=== PATIENT | male | born 1940 | race Caucasian/White ===

== ENCOUNTER 2018-03-18 07:27 | Inpatient (IN) | payer OTHER, MEDICARE ==
[~2018-03-18] VITALS: Ht 188 cm; Wt 175.6 kg
[~2018-03-18 07:27] MED LIST: CALMOSEPTINE O120 GM TP; CELEXA20 MG PO; CENTRUM COMPLE1 EACH PO; CENTRUM SILVER1 EAC1 PO; CENTRUM SILVER1 EAC3 PO; CLONAZEPAM0.5 MG PO; CLONAZEPAM1 MG PO; CLONAZEPAM2 MG PO; COLACE100 MG PO; COMBIVENT RESPIM4 GM IH; COUMADIN3 MG PO; COUMADIN5 MG PO; COUMADIN6 MG PO; CYMBALTA30 MG PO; Coumadin Protocol PO; Coumadin,Jantoven PO; DEPAKOTE250 MG PO; DEPAKOTE500 MG PO; DULCOLAX10 MG PR; DUONEB 2.5-0.5 M3 ML IH; DuoNeb IH; FEOSOL325 MG PO; FEVERALL80 MG; FLAGYL500 MG PO; FLEET ENEMA-AD118 ML PR; FLOMAX0.4 MG PO; GABAPENTIN100 MG OP; K-DUR20 MEQ PO; KEFLEX500 MG PO; KLONOPIN0.5 M1 PO; KLONOPIN1 MG PO; KlonoPIN PO; LASIX40 MG PO; LEXAPRO10 MG PO; LIDOCAINE700 MG TD; LIDODERM 5% P1 PATCH TD; LO-DOSE ASPIRIN81 M1 PO; LOW DOSE ASPIRI81 M1 PO; MIRALAX17 GM PO; OXECTA5 MG PO; OXYCODONE HCL5 MG PO; PERCOCET 5/31 TABLET PO; PHILLIPS'400 MG/5 M PO; PROMETHAZINE HC25 M1 PO; Pepcid PO; RISPERDAL0.5 MG PO; SPIRIVA1 INHALATI IH; TYLENOL REGULA325 MG PO; Theragran PO; ULTRAM50 MG PO; Ultram PO; Vancomycin IV; WELLBUTRIN SR150 MG PO; ZANTAC150 MG PO; celeXA PO
[2018-03-18 08:03] LABS: BASOPHIL (%) 0.5 % (0-1); EOSINOPHIL COUNT 0.1 K/uL (0-0.3); HEMATOCRIT 42.4 % (38.0-50.0); HEMOGLOBIN 12.4 G/DL (12.5-16.6); IMMATURE GRANULOCYTE (%) 0.9 % (0.0-0.7); LYMPHOCYTE (%) 32.4 % (15-42); LYMPHOCYTE COUNT 1.9 K/uL (1.0-2.8); MCHC 29.2 G/DL (30.0-36.0); MCV 99.3 FL (86-99); MONOCYTE (%) 5.2 % (3-12); MONOCYTE COUNT 0.3 K/uL (0-0.8); NEUTROPHIL COUNT 3.5 K/uL (1.8-6.4); PLATELET COUNT 190 K/uL (156-360); RBC DIS.WIDTH-CV 16.7 % (11.8-14.6); RBC DIS.WIDTH-SD 61.1 % (39-53); RED BLOOD COUNT 4.27 M/uL (4.00-5.50); WHITE BLOOD COUNT 5.8 K/uL (4.1-10.2)
[2018-03-18 08:11] LABS: PTT 33.4 SEC (25-37)
[2018-03-18 08:14] LABS: CHLORIDE 98 mEq/L (99-109); POTASSIUM 4.6 mEq/L (3.7-5.4); SODIUM 145 mEq/L (136-147)
[2018-03-18 08:16] LABS: GLUCOSE 98 mg/dL (70-99)
[2018-03-18 08:20] LABS: CREATININE 0.9 mg/dL (0.6-1.3); GFR ESTIMATE (CALCULATED) > 59 mL/min/ (58.99-99999)
[2018-03-18 08:21] LABS: UREA NITROGEN (BUN) 12 mg/dL (9-23)
[2018-03-18 08:24] LABS: TROP-I INTERPRETATION NEGATIVE; TROPONIN-I 0.05 ng/mL (0.0-0.30)
[2018-03-18 08:41] LABS: BASE EXCESS 14.7 mEq/L (-3 to +3); BICARBONATE 45.3 mEq/L (22-26); CARBOXY HGB 2.1 % (0-5); METHEMOGLOBIN 1.1 % (0-1.5); PCO2 92 mm Hg (35-45); PO2 92 mm Hg (80-100)
[2018-03-18 08:42] LABS: COMMENTS - BLOOD GASES A+C+; DEVICE NC; O2 FLOW 4 L/MIN; SITE LR
[2018-03-18] MEDS ORDERED: REMERON30 M2 PO (09:54)
[2018-03-18] MEDS ORDERED: DUONEB 2.5-0.5 M3 ML AEROSOL (09:56)
[2018-03-18] MEDS ORDERED: KETOCONAZOLE60 GM TP (09:57)
[2018-03-18] MEDS ORDERED: ANORO ELLIPTA1 EACH IH (09:58)
[2018-03-18] MEDS ORDERED: KEFLEX500 MG PO (09:58)
[2018-03-18 11:51] VITALS: BP 121/71
[2018-03-18 15:06] VITALS: BP 133/63
[2018-03-18 20:00] VITALS: BP 137/69
[2018-03-19] VITALS: BP 137/63
[2018-03-19 03:38] VITALS: BP 112/68
[2018-03-19 06:16] LABS: HEMATOCRIT 40.1 % (38.0-50.0); HEMOGLOBIN 11.8 G/DL (12.5-16.6); MCH 27.9 PG (29.0-34.0); MCHC 29.4 G/DL (30.0-36.0); PLATELET COUNT 203 K/uL (156-360); RBC DIS.WIDTH-CV 16.3 % (11.8-14.6); RBC DIS.WIDTH-SD 56.7 % (39-53); RED BLOOD COUNT 4.23 M/uL (4.00-5.50); WHITE BLOOD COUNT 4.1 K/uL (4.1-10.2)
[2018-03-19 06:24] LABS: MCV 94.8 FL (86-99)
[2018-03-19 06:30] LABS: ALBUMIN 3.4 G/DL (3.2-4.8); ALKALINE PHOSPHATASE 87 IU/L (3-129); ALT (GPT) 11 IU/L (3-49); AST (GOT) 11 IU/L (2-34); CHLORIDE 95 MEQ/L (99-109); CREATININE 1.1 MG/DL (0.6-1.3); GFR ESTIMATE (CALCULATED) > 59 mL/min/ (58.99-99999); GLUCOSE 141 mg/dL (70-99); POTASSIUM 4.5 MEQ/L (3.7-5.4); SODIUM 145 MEQ/L (136-147); TOTAL BILIRUBIN 0.4 MG/DL (0.0-1.0); TOTAL PROTEIN 6.2 G/DL (6.4-8.3)
[2018-03-19 06:36] LABS: UREA NITROGEN (BUN) 28 mg/dL (9-23)
[2018-03-19 06:45] LABS: CARBON DIOXIDE (BICARBONATE) > 40.0 MEQ/L (20-31)
[2018-03-19 07:09] VITALS: BP 116/56
[2018-03-19 11:53] LABS: COMMENTS - BLOOD GASES A+C+; DEVICE NC; O2 FLOW 6 L/MIN; PCO2 78 mm Hg (35-45); PO2 101 mm Hg (80-100); SITE RR
[2018-03-19 11:54] LABS: BASE EXCESS 19.5 mEq/L (-3 to +3); BICARBONATE 48.3 mEq/L (22-26); METHEMOGLOBIN 1.3 % (0-1.5)
[2018-03-19 15:15] VITALS: BP 127/59
[2018-03-19 19:35] VITALS: BP 137/71
[2018-03-20] VITALS (7 sets, daily range): BP systolic 118–165; BP diastolic 67–95
[2018-03-20 05:30] LABS: BASOPHIL (%) 0.1 % (0-1); EOSINOPHIL (%) 0 % (0-5); HEMATOCRIT 43.3 % (38.0-50.0); HEMOGLOBIN 12.9 G/DL (12.5-16.6); IMMATURE GRANULOCYTE (%) 0.6 % (0.0-0.7); LYMPHOCYTE (%) 11.5 % (15-42); LYMPHOCYTE COUNT 0.8 K/uL (1.0-2.8); MCH 28.2 PG (29.0-34.0); MCHC 29.8 G/DL (30.0-36.0); MCV 94.5 FL (86-99); MONOCYTE (%) 4.9 % (3-12); MONOCYTE COUNT 0.3 K/uL (0-0.8); NEUTROPHIL (%) 82.9 % (45-76); NEUTROPHIL COUNT 5.6 K/uL (1.8-6.4); PLATELET COUNT 225 K/uL (156-360); RBC DIS.WIDTH-CV 16.7 % (11.8-14.6); RBC DIS.WIDTH-SD 58.1 % (39-53); RED BLOOD COUNT 4.58 M/uL (4.00-5.50); WHITE BLOOD COUNT 6.8 K/uL (4.1-10.2)
[2018-03-20 05:32] LABS: TROP-I INTERPRETATION NEGATIVE; TROPONIN-I 0.06 ng/mL (0.0-0.30)
[2018-03-20 06:27] LABS: ALBUMIN 3.7 G/DL (3.2-4.8); ALKALINE PHOSPHATASE 89 IU/L (3-129); ALT (GPT) 17 IU/L (3-49); CHLORIDE 102 MEQ/L (99-109); CREATININE 1.2 MG/DL (0.6-1.3); GFR ESTIMATE (CALCULATED) > 59 mL/min/ (58.99-99999); GLUCOSE 118 mg/dL (70-99); POTASSIUM 4.4 MEQ/L (3.7-5.4); TOTAL BILIRUBIN 0.4 MG/DL (0.0-1.0); TOTAL PROTEIN 6.5 G/DL (6.4-8.3); UREA NITROGEN (BUN) 33 mg/dL (9-23)
[2018-03-20 06:30] LABS: SODIUM 153 MEQ/L (136-147)
[2018-03-20 06:31] LABS: AST (GOT) 25 IU/L (2-34); CARBON DIOXIDE (BICARBONATE) > 40.0 MEQ/L (20-31)
[2018-03-20 07:25] LABS: SITE RR
[2018-03-20 07:26] LABS: COMMENTS - BLOOD GASES A+C+; DEVICE NC; O2 FLOW 3 L/MIN; PCO2 66 mm Hg (35-45); PO2 81 mm Hg (80-100); TOTAL RESP RATE 20 resp/min; pH 7.44 (7.35-7.45)
[2018-03-20 07:27] LABS: BASE EXCESS 17.2 mEq/L (-3 to +3); BICARBONATE 46.8 mEq/L (22-26); CARBOXY HGB 1.8 % (0-5); METHEMOGLOBIN 1.5 % (0-1.5); O2 SATURATION (CALCULATED) 97.5 % (95-99)
[2018-03-20 15:49] LABS: HEMATOCRIT 43.3 % (38.0-50.0); HEMOGLOBIN 12.9 G/DL (12.5-16.6)
[2018-03-20 16:21] LABS: CHLORIDE 95 MEQ/L (99-109); CREATININE 1.3 MG/DL (0.6-1.3); GFR ESTIMATE (CALCULATED) 57 mL/min/ (58.99-99999); GLUCOSE 123 mg/dL (70-99); POTASSIUM 4.4 MEQ/L (3.7-5.4); UREA NITROGEN (BUN) 40 mg/dL (9-23)
[2018-03-20 16:22] LABS: SODIUM 143 MEQ/L (136-147)
[2018-03-21] VITALS (8 sets, daily range): BP systolic 132–155; BP diastolic 65–83
[2018-03-21 05:45] LABS: HEMATOCRIT 41.5 % (38.0-50.0); HEMOGLOBIN 12.2 G/DL (12.5-16.6); MCH 28.1 PG (29.0-34.0); MCHC 29.4 G/DL (30.0-36.0); MCV 95.6 FL (86-99); PLATELET COUNT 212 K/uL (156-360); RBC DIS.WIDTH-CV 16.5 % (11.8-14.6); RBC DIS.WIDTH-SD 58.3 % (39-53); RED BLOOD COUNT 4.34 M/uL (4.00-5.50)
[2018-03-21 06:16] LABS: CHLORIDE 98 MEQ/L (99-109); CREATININE 1.3 MG/DL (0.6-1.3); GFR ESTIMATE (CALCULATED) 57 mL/min/ (58.99-99999); POTASSIUM 4.2 MEQ/L (3.7-5.4); SODIUM 145 MEQ/L (136-147); UREA NITROGEN (BUN) 34 mg/dL (9-23)
[2018-03-21 06:20] LABS: CARBON DIOXIDE (BICARBONATE) > 40.0 MEQ/L (20-31); GLUCOSE 88 mg/dL (70-99)
[2018-03-21 12:52] LABS: TYPE OF FLUID THORACENTESIS
[2018-03-21 13:07] LABS: APPEARANCE SL. HAZY-YELLOW; BODY FLUID RBC'S < 1000 /MM^3 (0-100); BODY FLUID WBC'S 1243 /MM^3 (0-500)
[2018-03-21 13:27] LABS: BODY FLUID GLUCOSE 113 MG/DL; BODY FLUID LDH 76 IU/L; BODY FLUID PROTEIN 3.1 G/DL
[2018-03-21 13:40] LABS: TOTAL PROTEIN 6.1 G/DL (6.4-8.3)
[2018-03-21 13:50] LABS: BODY FLUID EOSINOPHILS 2 % (0-25); MONONUCLEAR WBC'S 97 %; POLYNUCLEAR WBC'S 1 % (0-25)
[2018-03-22 03:35] VITALS: BP 119/63
[2018-03-22 06:06] LABS: CHLORIDE 96 MEQ/L (99-109); CREATININE 1.1 MG/DL (0.6-1.3); GFR ESTIMATE (CALCULATED) > 59 mL/min/ (58.99-99999); GLUCOSE 92 mg/dL (70-99); SODIUM 142 MEQ/L (136-147); UREA NITROGEN (BUN) 31 mg/dL (9-23)
[2018-03-22 06:11] LABS: CARBON DIOXIDE (BICARBONATE) > 40.0 MEQ/L (20-31)
[2018-03-22 07:19] VITALS: BP 104/62
[2018-03-22 11:03] VITALS: BP 129/62
[2018-03-22 15:25] VITALS: BP 154/65
[2018-03-22 19:45] VITALS: BP 127/57
[2018-03-22 23:50] VITALS: BP 124/60
[2018-03-23 03:54] VITALS: BP 136/73
[2018-03-23 08:54] VITALS: BP 132/90
[2018-03-23 12:39] VITALS: BP 139/69
[2018-03-23] MEDS ORDERED: MELATONIN1 MG PO (15:35)
[2018-03-23 16:43] VITALS: BP 93/58
[2018-03-23 19:46] VITALS: BP 130/82
[2018-03-24 00:54] VITALS: BP 90/56
[2018-03-24 04:19] VITALS: BP 96/51
[2018-03-24 06:49] LABS: CHLORIDE 97 MEQ/L (99-109); CREATININE 1.2 MG/DL (0.6-1.3); GFR ESTIMATE (CALCULATED) > 59 mL/min/ (58.99-99999); GLUCOSE 86 mg/dL (70-99); SODIUM 140 MEQ/L (136-147); UREA NITROGEN (BUN) 30 mg/dL (9-23)
[2018-03-24 07:35] VITALS: BP 129/59
[2018-03-24 11:39] VITALS: BP 101/55
[2018-03-24] MEDS ORDERED: POLYETHYLENE GL17 GM PO (13:36)
[2018-03-24] MEDS ORDERED: CALAN SR,COVER120 MG PO (13:36)
[2018-03-24] MEDS ORDERED: FUROSEMIDE20 MG PO (13:36)
[2018-03-24] MEDS ORDERED: BACITRACIN28.4 GM TP (13:36)
[2018-03-24] MEDS ORDERED: LISINOPRIL5 MG PO (13:36)
== END 2018-03-24 15:51 | disposition home health service (06) | DRG 190 ==
LOC: EME 07:27 → EDOF 09:24 → 5SOUTH 09:24 → ENRESERV 09:25 → 5SOUTH 11:31 → ENRESERV 11:31 → 5SOUTH 03-24 15:51
PROVIDERS: Emergency Medicine; Family Medicine; Hospitalist; Internal Medicine; Internal Medicine Pulmonary Disease; Nurse Practitioner Adult Health
PROC: 5A09357 Assistance with Respiratory Ventilation, Less than 24 Consecutive Hours, Continuous Positive Airway Pressure (ICD-10-PCS; principal; 2018-03-18)
PROC: 0W9B30Z Drainage of Left Pleural Cavity with Drainage Device, Percutaneous Approach (ICD-10-PCS; 2018-03-21)
DX: J44.1 Chronic obstructive pulmonary disease with (acute) exacerbation (principal); J96.21 Acute and chronic respiratory failure with hypoxia; J96.22 Acute and chronic respiratory failure with hypercapnia; I13.0 Hypertensive heart and chronic kidney disease with heart failure and stage 1 through stage 4 chronic kidney disease, or unspecified chronic kidney disease; I50.21 Acute systolic (congestive) heart failure; N18.3 Chronic kidney disease, stage 3 (moderate); J98.01 Acute bronchospasm; Z99.81 Dependence on supplemental oxygen; S81.811A Laceration without foreign body, right lower leg, initial encounter; W22.8XXA Striking against or struck by other objects, initial encounter; Y92.230 Patient room in hospital as the place of occurrence of the external cause; D64.9 Anemia, unspecified; E86.9 Volume depletion, unspecified; T50.1X5A Adverse effect of loop [high-ceiling] diuretics, initial encounter; E87.2 Acidosis; F19.959 Other psychoactive substance use, unspecified with psychoactive substance-induced psychotic disorder, unspecified; T38.0X5A Adverse effect of glucocorticoids and synthetic analogues, initial encounter; J90 Pleural effusion, not elsewhere classified; I47.1 Supraventricular tachycardia; I27.20 Pulmonary hypertension, unspecified; E66.01 Morbid (severe) obesity due to excess calories; Z68.42 Body mass index [BMI] 45.0-49.9, adult; G47.33 Obstructive sleep apnea (adult) (pediatric); I42.9 Cardiomyopathy, unspecified; I35.0 Nonrheumatic aortic (valve) stenosis; I73.9 Peripheral vascular disease, unspecified; I25.10 Atherosclerotic heart disease of native coronary artery without angina pectoris; K21.9 Gastro-esophageal reflux disease without esophagitis; F41.9 Anxiety disorder, unspecified; F32.9 Major depressive disorder, single episode, unspecified; Z90.5 Acquired absence of kidney; Z86.14 Personal history of Methicillin resistant Staphylococcus aureus infection; Z87.891 Personal history of nicotine dependence; Z89.612 Acquired absence of left leg above knee
CPT/HCPCS: 36600; 71045; 76942; 80048; 80048 91; 80053; 82803; 82945; 83615; 83615 91; 83880; 84155; 84157; 84484; 85014; 85018; 85025; 85027; 85610; 85730; 87070; 87075; 87116; 87205; 87206; 88108; 88305; 89051; 93005; 93306; 94010; 94640; 94640 76; 94660; 94667; 94668; 94799; 97530 GP; 99281; 99284; J0456; J1650; J1940; J2930; J7512

== ENCOUNTER 2018-04-04 18:55 | Inpatient (IN) | payer OTHER, MEDICARE ==
[~2018-04-04] VITALS: Ht 193 cm; Wt 126.7 kg
[~2018-04-04 18:55] MED LIST changes: +ANORO ELLIPTA1 EACH IH; +BACITRACIN28.4 GM TP; +CALAN SR,COVER120 MG PO; +DUONEB 2.5-0.5 M3 ML AEROSOL; +FUROSEMIDE20 MG PO; +KETOCONAZOLE60 GM TP; +LISINOPRIL5 MG PO; +MELATONIN1 MG PO; +POLYETHYLENE GL17 GM PO; +REMERON30 M2 PO
[2018-04-04 19:42] LABS: BASOPHIL (%) 0.4 % (0-1); EOSINOPHIL (%) 1.6 % (0-5); EOSINOPHIL COUNT 0.1 K/uL (0-0.3); HEMATOCRIT 40.2 % (38.0-50.0); HEMOGLOBIN 11.9 G/DL (12.5-16.6); IMMATURE GRANULOCYTE (%) 0.2 % (0.0-0.7); LYMPHOCYTE COUNT 1.1 K/uL (1.0-2.8); MCH 29.2 PG (29.0-34.0); MCHC 29.6 G/DL (30.0-36.0); MCV 98.8 FL (86-99); MONOCYTE (%) 5.4 % (3-12); MONOCYTE COUNT 0.3 K/uL (0-0.8); NEUTROPHIL (%) 70.4 % (45-76); NEUTROPHIL COUNT 3.6 K/uL (1.8-6.4); PLATELET COUNT 194 K/uL (156-360); RBC DIS.WIDTH-CV 15.2 % (11.8-14.6); RBC DIS.WIDTH-SD 54.9 % (39-53); RED BLOOD COUNT 4.07 M/uL (4.00-5.50); WHITE BLOOD COUNT 5.1 K/uL (4.1-10.2)
[2018-04-04 19:53] LABS: INTER. NORMALIZED RATIO 1.1
[2018-04-04 19:54] LABS: ALBUMIN 3.6 g/dL (3.2-4.8); CHLORIDE 98 mEq/L (99-109); POTASSIUM 5.5 mEq/L (3.7-5.4); SODIUM 147 mEq/L (136-147)
[2018-04-04 19:55] LABS: MAGNESIUM 2.4 mg/dL (1.3-2.7)
[2018-04-04 19:56] LABS: PTT 33.5 SEC (25-37)
[2018-04-04 19:56] LABS: GLUCOSE 107 mg/dL (70-99)
[2018-04-04 19:58] LABS: TOTAL BILIRUBIN 0.3 mg/dL (0.0-1.0)
[2018-04-04 20:00] LABS: ALKALINE PHOSPHATASE 94 IU/L (3-129); CREATININE 1.5 mg/dL (0.6-1.3); GFR ESTIMATE (CALCULATED) 48 mL/min/ (58.99-99999)
[2018-04-04 20:01] LABS: UREA NITROGEN (BUN) 33 mg/dL (9-23)
[2018-04-04 20:02] LABS: AST (GOT) 14 IU/L (2-34)
[2018-04-04 20:03] LABS: ALT (GPT) 14 IU/L (3-49)
[2018-04-04 20:04] LABS: TROP-I INTERPRETATION NEGATIVE; TROPONIN-I 0.05 ng/mL (0.0-0.30)
[2018-04-04] MEDS ORDERED: ZESTRIL5 MG PO (22:34)
[2018-04-04] MEDS ORDERED: TAMSULOSIN HCL0.4 MG PO (22:38)
[2018-04-04] MEDS ORDERED: VERAPAMIL HCL120 M2 PO (22:39)
[2018-04-04] MEDS ORDERED: TYLENOL EXTRA500 MG PO (22:41)
[2018-04-05] VITALS (14 sets, daily range): BP systolic 85–118; BP diastolic 46–76
[2018-04-05 00:19] LABS: COMMENTS - BLOOD GASES C+; DEVICE NCH; O2 FLOW 15 L/MIN; PCO2 99 mm Hg (35-45); SITE RR; pH 7.28 (7.35-7.45)
[2018-04-05 00:20] LABS: BASE EXCESS 15.8 mEq/L (-3 to +3); BICARBONATE 46.5 mEq/L (22-26); CARBOXY HGB 1.9 % (0-5); METHEMOGLOBIN 1.3 % (0-1.5); O2 SATURATION (CALCULATED) 98.2 % (95-99); PO2 95 mm Hg (80-100)
[2018-04-05 03:43] LABS: COMMENTS - BLOOD GASES C+; DEVICE NCH; O2 FLOW 10 L/MIN; PCO2 107 mm Hg (35-45); PO2 77 mm Hg (80-100); SITE RR; pH 7.24 (7.35-7.45)
[2018-04-05 03:44] LABS: BASE EXCESS 14.4 mEq/L (-3 to +3); BICARBONATE 45.9 mEq/L (22-26); CARBOXY HGB 1.7 % (0-5)
[2018-04-05 04:54] LABS: DEVICE BIPAP; O2 FLOW 15 L/MIN; SITE RR
[2018-04-05 04:55] LABS: BASE EXCESS 11.8 mEq/L (-3 to +3); BICARBONATE 43.4 mEq/L (22-26); CARBOXY HGB 1.6 % (0-5); CONTINUOUS POS AIRWAY PRESSURE 6 cm H2O; METHEMOGLOBIN 1.2 % (0-1.5); PCO2 106 mm Hg (35-45); PO2 50 mm Hg (80-100); PRES. SUPPORT 20 CM/H2O; pH 7.22 (7.35-7.45)
[2018-04-05 04:56] LABS: COMMENTS - BLOOD GASES C+
[2018-04-05 06:11] LABS: HEMATOCRIT 40.7 % (38.0-50.0); HEMOGLOBIN 11.6 G/DL (12.5-16.6); MCH 28.2 PG (29.0-34.0); MCHC 28.5 G/DL (30.0-36.0); PLATELET COUNT 210 K/uL (156-360); RBC DIS.WIDTH-CV 15.5 % (11.8-14.6); RBC DIS.WIDTH-SD 56.6 % (39-53); RED BLOOD COUNT 4.11 M/uL (4.00-5.50); WHITE BLOOD COUNT 9.2 K/uL (4.1-10.2)
[2018-04-05 06:39] LABS: CHLORIDE 97 MEQ/L (99-109); CREATININE 1.5 MG/DL (0.6-1.3); GFR ESTIMATE (CALCULATED) 48 mL/min/ (58.99-99999); GLUCOSE 119 mg/dL (70-99); POTASSIUM 4.9 MEQ/L (3.7-5.4); SODIUM 143 MEQ/L (136-147); UREA NITROGEN (BUN) 35 mg/dL (9-23)
[2018-04-05 06:43] LABS: CARBON DIOXIDE (BICARBONATE) > 40.0 MEQ/L (20-31)
[2018-04-05 06:55] LABS: PCO2 106 mm Hg (35-45); PO2 93 mm Hg (80-100); pH 7.21 (7.35-7.45)
[2018-04-05 06:56] LABS: BASE EXCESS 10.7 mEq/L (-3 to +3); BICARBONATE 42.4 mEq/L (22-26); CARBOXY HGB 2.7 % (0-5); METHEMOGLOBIN 0.3 % (0-1.5); O2 SATURATION (CALCULATED) 98.8 % (95-99)
[2018-04-05 06:57] LABS: COMMENTS - BLOOD GASES C+A+; DEVICE MASK VENT]; FI02 40 %; MODE SPONT; SITE RR; TOTAL RESP RATE 18 resp/min
[2018-04-05 06:58] LABS: PEEP 5 CM/H20; PRES. SUPPORT 18 CM/H2O
[2018-04-05 12:30] LABS: COMMENTS - BLOOD GASES A+C+; DEVICE VENT; FI02 60 %; SITE RR
[2018-04-05 12:31] LABS: MECHANICAL RATE 16 resp/min; MODE ACVC; PEEP 5 CM/H20; TIDAL VOLUME 500 ML; TOTAL RESP RATE 16 resp/min
[2018-04-05 12:32] LABS: BASE EXCESS 13.6 mEq/L (-3 to +3); BICARBONATE 41.2 mEq/L (22-26); O2 SATURATION (CALCULATED) 98.5 % (95-99); PCO2 68 mm Hg (35-45); PO2 100 mm Hg (80-100); pH 7.38 (7.35-7.45)
[2018-04-05 13:36] LABS: TROP-I INTERPRETATION NEGATIVE; TROPONIN-I 0.05 ng/mL (0.0-0.30)
[2018-04-05 14:14] LABS: ALBUMIN 3.2 G/DL (3.2-4.8); ALKALINE PHOSPHATASE 84 IU/L (3-129); ALT (GPT) 10 IU/L (3-49); AST (GOT) 9 IU/L (2-34); CHLORIDE 100 MEQ/L (99-109); CREATININE 1.5 MG/DL (0.6-1.3); GFR ESTIMATE (CALCULATED) 48 mL/min/ (58.99-99999); GLUCOSE 112 mg/dL (70-99); MAGNESIUM 1.7 mg/dl (1.3-2.7); SODIUM 143 MEQ/L (136-147); TOTAL BILIRUBIN 0.7 MG/DL (0.0-1.0); TOTAL PROTEIN 5.8 G/DL (6.4-8.3); UREA NITROGEN (BUN) 35 mg/dL (9-23)
[2018-04-05 14:32] LABS: APPEARANCE CLEAR ((CLEAR)); BILIRUBIN NEGATIVE; BLOOD NEGATIVE; COLOR YELLOW ((YELLOW)); GLUCOSE (STRIP) NEGATIVE; KETONES NEGATIVE; LEUKOCYTES NEGATIVE; NITRITE NEGATIVE; PROTEIN (STRIP) NEGATIVE; UCUL ADDED? NO; UROBILINOGEN 0.2 MG/DL (0.2-1.0)
[2018-04-05 16:09] LABS: HIGH-SENS C-REACTIVE PROTEIN 4.86 MG/DL (0.02-0.20)
[2018-04-05 20:27] LABS: CHLORIDE 101 MEQ/L (99-109); CREATININE 1.6 MG/DL (0.6-1.3); GFR ESTIMATE (CALCULATED) 45 mL/min/ (58.99-99999); GLUCOSE 188 mg/dL (70-99); POTASSIUM 5.3 MEQ/L (3.7-5.4); SODIUM 140 MEQ/L (136-147); UREA NITROGEN (BUN) 35 mg/dL (9-23)
[2018-04-06] VITALS (27 sets, daily range): BP systolic 15–133; BP diastolic 44–76
[2018-04-06 10:25] LABS: HEMATOCRIT 30.5 % (38.0-50.0); MCH 28.7 PG (29.0-34.0); MCHC 30.5 G/DL (30.0-36.0); RBC DIS.WIDTH-CV 15.8 % (11.8-14.6); RBC DIS.WIDTH-SD 54.7 % (39-53); WHITE BLOOD COUNT 6.3 K/uL (4.1-10.2)
[2018-04-06 10:37] LABS: HEMOGLOBIN 9.3 G/DL (12.5-16.6); MCV 94.1 FL (86-99); RED BLOOD COUNT 3.24 M/uL (4.00-5.50)
[2018-04-06 10:44] LABS: BASOPHIL (%) 0 % (0-1); EOSINOPHIL (%) 0 % (0-5); IMMATURE GRANULOCYTE (%) 0.8 % (0.0-0.7); LYMPHOCYTE COUNT 0.4 K/uL (1.0-2.8); MONOCYTE (%) 0.5 % (3-12); NEUTROPHIL (%) 92.7 % (45-76); NEUTROPHIL COUNT 5.9 K/uL (1.8-6.4); PLAT.SUFFICIENCY ADEQUATE
[2018-04-06 10:53] LABS: ALBUMIN 2.9 G/DL (3.2-4.8); ALKALINE PHOSPHATASE 58 IU/L (3-129); ALT (GPT) 9 IU/L (3-49); AST (GOT) 9 IU/L (2-34); CHLORIDE 104 MEQ/L (99-109); CREATININE 1.2 MG/DL (0.6-1.3); GFR ESTIMATE (CALCULATED) > 59 mL/min/ (58.99-99999); GLUCOSE 156 mg/dL (70-99); POTASSIUM 3.8 MEQ/L (3.7-5.4); SODIUM 141 MEQ/L (136-147); TOTAL PROTEIN 5.5 G/DL (6.4-8.3); UREA NITROGEN (BUN) 29 mg/dL (9-23)
[2018-04-06 10:54] LABS: MAGNESIUM 1.4 mg/dl (1.3-2.7); TOTAL BILIRUBIN 0.3 MG/DL (0.0-1.0)
[2018-04-06 11:11] LABS: PLATELET COUNT 135 K/uL (156-360)
[2018-04-07] VITALS (23 sets, daily range): BP systolic 81–147; BP diastolic 42–104
[2018-04-07 05:29] LABS: BASOPHIL (%) 0 % (0-1); EOSINOPHIL (%) 0 % (0-5); HEMATOCRIT 32.2 % (38.0-50.0); HEMOGLOBIN 9.9 G/DL (12.5-16.6); IMMATURE GRANULOCYTE (%) 0.5 % (0.0-0.7); LYMPHOCYTE COUNT 0.3 K/uL (1.0-2.8); MCH 28.5 PG (29.0-34.0); MCHC 30.7 G/DL (30.0-36.0); MCV 92.8 FL (86-99); MONOCYTE (%) 1.6 % (3-12); MONOCYTE COUNT 0.1 K/uL (0-0.8); NEUTROPHIL (%) 91.9 % (45-76); NEUTROPHIL COUNT 5.2 K/uL (1.8-6.4); PLATELET COUNT 149 K/uL (156-360); RBC DIS.WIDTH-CV 15.8 % (11.8-14.6); RBC DIS.WIDTH-SD 53.7 % (39-53); RED BLOOD COUNT 3.47 M/uL (4.00-5.50); WHITE BLOOD COUNT 5.7 K/uL (4.1-10.2)
[2018-04-07 05:59] LABS: ALBUMIN 2.6 G/DL (3.2-4.8); ALKALINE PHOSPHATASE 63 IU/L (3-129); ALT (GPT) 10 IU/L (3-49); AST (GOT) 10 IU/L (2-34); CHLORIDE 111 MEQ/L (99-109); CREATININE 0.9 MG/DL (0.6-1.3); GFR ESTIMATE (CALCULATED) > 59 mL/min/ (58.99-99999); GLUCOSE 187 mg/dL (70-99); MAGNESIUM 1.4 mg/dl (1.3-2.7); SODIUM 146 MEQ/L (136-147); TOTAL PROTEIN 4.9 G/DL (6.4-8.3); UREA NITROGEN (BUN) 24 mg/dL (9-23)
[2018-04-07 06:02] LABS: PHOSPHORUS 1.3 mg/dL (2.5-4.9); POTASSIUM 2.7 MEQ/L (3.7-5.4); TOTAL BILIRUBIN 0.2 MG/DL (0.0-1.0)
[2018-04-07 17:39] LABS: COMMENTS - BLOOD GASES A+C+; DEVICE VENT; FI02 30 %; MECHANICAL RATE 16 resp/min; MODE ACVC; PCO2 46 mm Hg (35-45); PEEP 5 CM/H20; PO2 83 mm Hg (80-100); SITE LR; TIDAL VOLUME 500 ML; TOTAL RESP RATE 16 resp/min; pH 7.35 (7.35-7.45)
[2018-04-07 17:40] LABS: BASE EXCESS -0.4 mEq/L (-3 to +3); BICARBONATE 25.4 mEq/L (22-26); CARBOXY HGB 1.3 % (0-5); METHEMOGLOBIN 0.7 % (0-1.5)
[2018-04-08] VITALS (18 sets, daily range): BP systolic 92–169; BP diastolic 50–88
[2018-04-08 05:35] LABS: BASOPHIL (%) 0 % (0-1); EOSINOPHIL (%) 0 % (0-5); HEMATOCRIT 34.1 % (38.0-50.0); HEMOGLOBIN 10.4 G/DL (12.5-16.6); IMMATURE GRANULOCYTE (%) 0.7 % (0.0-0.7); LYMPHOCYTE (%) 6.1 % (15-42); LYMPHOCYTE COUNT 0.4 K/uL (1.0-2.8); MCH 28.5 PG (29.0-34.0); MCHC 30.5 G/DL (30.0-36.0); MCV 93.4 FL (86-99); MONOCYTE (%) 0.8 % (3-12); MONOCYTE COUNT 0.1 K/uL (0-0.8); NEUTROPHIL (%) 92.4 % (45-76); NEUTROPHIL COUNT 5.5 K/uL (1.8-6.4); PLATELET COUNT 162 K/uL (156-360); RBC DIS.WIDTH-CV 16.4 % (11.8-14.6); RED BLOOD COUNT 3.65 M/uL (4.00-5.50); WHITE BLOOD COUNT 5.9 K/uL (4.1-10.2)
[2018-04-08 05:57] LABS: ALBUMIN 2.6 G/DL (3.2-4.8); ALKALINE PHOSPHATASE 62 IU/L (3-129); ALT (GPT) 13 IU/L (3-49); AST (GOT) 12 IU/L (2-34); CHLORIDE 111 MEQ/L (99-109); CREATININE 0.8 MG/DL (0.6-1.3); GFR ESTIMATE (CALCULATED) > 59 mL/min/ (58.99-99999); GLUCOSE 162 mg/dL (70-99); SODIUM 146 MEQ/L (136-147); TOTAL BILIRUBIN 0.2 MG/DL (0.0-1.0); TOTAL PROTEIN 4.8 G/DL (6.4-8.3); UREA NITROGEN (BUN) 22 mg/dL (9-23)
[2018-04-08 06:01] LABS: MAGNESIUM 2.1 mg/dl (1.3-2.7); PHOSPHORUS 2.6 mg/dL (2.5-4.9); POTASSIUM 3.4 MEQ/L (3.7-5.4)
[2018-04-08 14:32] LABS: COMMENTS - BLOOD GASES C+; DEVICE VENT; FI02 30 %; MODE TC; PCO2 57 mm Hg (35-45); PEEP 5 CM/H20; SITE LR; TOTAL RESP RATE 18 resp/min
[2018-04-08 14:33] LABS: BASE EXCESS 0.8 mEq/L (-3 to +3); BICARBONATE 28 mEq/L (22-26); CARBOXY HGB 1.3 % (0-5); METHEMOGLOBIN 0.7 % (0-1.5); O2 SATURATION (CALCULATED) 96.7 % (95-99); PO2 78 mm Hg (80-100)
[2018-04-09] VITALS (18 sets, daily range): BP systolic 118–153; BP diastolic 61–87
[2018-04-09 06:41] LABS: BASOPHIL (%) 0.2 % (0-1); EOSINOPHIL (%) 0.4 % (0-5); HEMATOCRIT 36.4 % (38.0-50.0); HEMOGLOBIN 11.2 G/DL (12.5-16.6); IMMATURE GRANULOCYTE (%) 1.3 % (0.0-0.7); LYMPHOCYTE (%) 7.6 % (15-42); LYMPHOCYTE COUNT 0.4 K/uL (1.0-2.8); MCH 28.9 PG (29.0-34.0); MCHC 30.8 G/DL (30.0-36.0); MCV 94.1 FL (86-99); MONOCYTE (%) 3.9 % (3-12); MONOCYTE COUNT 0.2 K/uL (0-0.8); NEUTROPHIL (%) 86.6 % (45-76); NEUTROPHIL COUNT 4.7 K/uL (1.8-6.4); RBC DIS.WIDTH-SD 58.4 % (39-53); RED BLOOD COUNT 3.87 M/uL (4.00-5.50); WHITE BLOOD COUNT 5.4 K/uL (4.1-10.2)
[2018-04-09 07:02] LABS: ALBUMIN 3.1 G/DL (3.2-4.8); ALKALINE PHOSPHATASE 55 IU/L (3-129); CHLORIDE 110 MEQ/L (99-109); GFR ESTIMATE (CALCULATED) > 59 mL/min/ (58.99-99999); GLUCOSE 131 mg/dL (70-99); MAGNESIUM 1.8 mg/dl (1.3-2.7); PHOSPHORUS 2.7 mg/dL (2.5-4.9); SODIUM 146 MEQ/L (136-147); TOTAL PROTEIN 5.2 G/DL (6.4-8.3); UREA NITROGEN (BUN) 26 mg/dL (9-23)
[2018-04-09 07:12] LABS: POTASSIUM 4.2 MEQ/L (3.7-5.4)
[2018-04-09 07:13] LABS: ALT (GPT) 33 IU/L (3-49); AST (GOT) 22 IU/L (2-34); TOTAL BILIRUBIN 0.4 MG/DL (0.0-1.0)
[2018-04-09 07:22] LABS: PLATELET CLUMPS PRESENT - PLATELET COUNT APPEARS ADQ.
[2018-04-09 07:31] LABS: PLATELET COUNT UNABLE TO REPORT K/uL (156-360)
[2018-04-09 16:33] LABS: BASE EXCESS 4.9 mEq/L (-3 to +3); BICARBONATE 32.2 mEq/L (22-26); CARBOXY HGB 2.2 % (0-5); COMMENTS - BLOOD GASES C+; DEVICE VENT; FI02 30 %; METHEMOGLOBIN 0.5 % (0-1.5); MODE TC; O2 SATURATION (CALCULATED) 94.8 % (95-99); PCO2 61 mm Hg (35-45); PEEP 5 CM/H20; PO2 63 mm Hg (80-100); SITE LR; TOTAL RESP RATE 22 resp/min; pH 7.33 (7.35-7.45)
[2018-04-09 18:51] LABS: CHLORIDE 106 MEQ/L (99-109); GFR ESTIMATE (CALCULATED) > 59 mL/min/ (58.99-99999); GLUCOSE 123 mg/dL (70-99); MAGNESIUM 1.8 mg/dl (1.3-2.7); SODIUM 145 MEQ/L (136-147); UREA NITROGEN (BUN) 30 mg/dL (9-23)
[2018-04-10] VITALS (22 sets, daily range): BP systolic 94–145; BP diastolic 46–86
[2018-04-10 05:30] LABS: BASOPHIL (%) 0.4 % (0-1); EOSINOPHIL (%) 0 % (0-5); HEMATOCRIT 34.1 % (38.0-50.0); HEMOGLOBIN 10.4 G/DL (12.5-16.6); IMMATURE GRANULOCYTE (%) 2.5 % (0.0-0.7); LYMPHOCYTE (%) 8.8 % (15-42); LYMPHOCYTE COUNT 0.5 K/uL (1.0-2.8); MCH 28.5 PG (29.0-34.0); MCHC 30.5 G/DL (30.0-36.0); MCV 93.4 FL (86-99); MONOCYTE (%) 4.8 % (3-12); MONOCYTE COUNT 0.3 K/uL (0-0.8); NEUTROPHIL (%) 83.5 % (45-76); NEUTROPHIL COUNT 4.4 K/uL (1.8-6.4); RBC DIS.WIDTH-SD 58.6 % (39-53); RED BLOOD COUNT 3.65 M/uL (4.00-5.50); WHITE BLOOD COUNT 5.2 K/uL (4.1-10.2)
[2018-04-10 05:41] LABS: PLATELET COUNT 171 K/uL (156-360)
[2018-04-10 12:55] LABS: ALKALINE PHOSPHATASE 52 IU/L (3-129); ALT (GPT) 39 IU/L (3-49); AST (GOT) 17 IU/L (2-34); CHLORIDE 109 MEQ/L (99-109); GFR ESTIMATE (CALCULATED) > 59 mL/min/ (58.99-99999); GLUCOSE 116 mg/dL (70-99); PHOSPHORUS 2.1 mg/dL (2.5-4.9); POTASSIUM 4.3 MEQ/L (3.7-5.4); SODIUM 149 MEQ/L (136-147); UREA NITROGEN (BUN) 36 mg/dL (9-23)
[2018-04-10 12:57] LABS: TOTAL BILIRUBIN 0.3 MG/DL (0.0-1.0)
[2018-04-10 15:56] LABS: COMMENTS - BLOOD GASES A+C+; DEVICE VENT; FI02 30 %; MODE PS; PCO2 55 mm Hg (35-45); PEEP 10 CM/H20; PRES. SUPPORT 15 CM/H2O; SITE LR; TOTAL RESP RATE 18 resp/min; pH 7.41 (7.35-7.45)
[2018-04-10 15:57] LABS: BASE EXCESS 8.8 mEq/L (-3 to +3); BICARBONATE 34.9 mEq/L (22-26); METHEMOGLOBIN 0 % (0-1.5); PO2 50 mm Hg (80-100)
[2018-04-11] VITALS (14 sets, daily range): BP systolic 115–167; BP diastolic 42–98
[2018-04-11 06:38] LABS: HEMATOCRIT 34.6 % (38.0-50.0); HEMOGLOBIN 10.6 G/DL (12.5-16.6); MCH 28.3 PG (29.0-34.0); MCHC 30.6 G/DL (30.0-36.0); MCV 92.5 FL (86-99); NRBC (%) 0.6 /100 WBC (0-0); PLATELET COUNT 183 K/uL (156-360); RBC DIS.WIDTH-CV 17.1 % (11.8-14.6); RBC DIS.WIDTH-SD 57.9 % (39-53); RED BLOOD COUNT 3.74 M/uL (4.00-5.50); WHITE BLOOD COUNT 4.8 K/uL (4.1-10.2)
[2018-04-11 07:10] LABS: ANISOCYTOSIS 1+; EOSINOPHIL ABS CT 0; LYMPHOCYTES 6.5 % (15.0-45.0); METAMYELOCYTES 0.9 %; MONOCYTES 3.7 % (0-9.0); MYELOCYTES 4.6 %; NUCLEATED RBC'S 1.9; OVALOCYTES 1+; PLAT.SUFFICIENCY ADEQUATE; SEG.NEUTROPHILS 84.3 % (46.0-76.0)
[2018-04-11 07:12] LABS: ALKALINE PHOSPHATASE 52 IU/L (3-129); ALT (GPT) 45 IU/L (3-49); AST (GOT) 19 IU/L (2-34); CHLORIDE 103 MEQ/L (99-109); CREATININE 0.9 MG/DL (0.6-1.3); GFR ESTIMATE (CALCULATED) > 59 mL/min/ (58.99-99999); GLUCOSE 133 mg/dL (70-99); MAGNESIUM 1.9 mg/dl (1.3-2.7); PHOSPHORUS 2.3 mg/dL (2.5-4.9); POTASSIUM 4.5 MEQ/L (3.7-5.4); SODIUM 143 MEQ/L (136-147); TOTAL PROTEIN 4.9 G/DL (6.4-8.3); UREA NITROGEN (BUN) 41 mg/dL (9-23)
[2018-04-11 07:13] LABS: TOTAL BILIRUBIN 0.4 MG/DL (0.0-1.0); VANCOMYCIN, TROUGH 16.7 MCG/ML (10-20)
[2018-04-11 10:06] LABS: DEVICE VENT; FI02 35 %; MODE SPONT PS; PEEP 5 CM/H20; PRES. SUPPORT 10 CM/H2O; SITE RR; TOTAL RESP RATE 20 resp/min
[2018-04-11 10:07] LABS: O2 SATURATION (CALCULATED) 97.3 % (95-99); PCO2 55 mm Hg (35-45); PO2 93 mm Hg (80-100); TIDAL VOLUME 573 ML
[2018-04-11 10:08] LABS: BASE EXCESS 7.9 mEq/L (-3 to +3); BICARBONATE 34.1 mEq/L (22-26); CARBOXY HGB 1.2 % (0-5); METHEMOGLOBIN 1.2 % (0-1.5)
[2018-04-12] VITALS (18 sets, daily range): BP systolic 108–164; BP diastolic 68–107
[2018-04-12 05:27] LABS: HEMATOCRIT 36.5 % (38.0-50.0); MCHC 30.1 G/DL (30.0-36.0); MCV 96.3 FL (86-99); NRBC (%) 0.3 /100 WBC (0-0); PLATELET COUNT 197 K/uL (156-360); RBC DIS.WIDTH-CV 17.2 % (11.8-14.6); RBC DIS.WIDTH-SD 60.8 % (39-53); RED BLOOD COUNT 3.79 M/uL (4.00-5.50); WHITE BLOOD COUNT 6.2 K/uL (4.1-10.2)
[2018-04-12 05:55] LABS: CHLORIDE 103 MEQ/L (99-109); CREATININE 0.9 MG/DL (0.6-1.3); GFR ESTIMATE (CALCULATED) > 59 mL/min/ (58.99-99999); GLUCOSE 112 mg/dL (70-99); MAGNESIUM 2.1 mg/dl (1.3-2.7); POTASSIUM 4.9 MEQ/L (3.7-5.4); SODIUM 147 MEQ/L (136-147); UREA NITROGEN (BUN) 34 mg/dL (9-23)
[2018-04-12 06:11] LABS: PHOSPHORUS 3.4 mg/dL (2.5-4.9)
[2018-04-12 06:31] LABS: ABS NEUTROPHIL COUNT 5.2; ANISOCYTOSIS 1+; BAND NEUTROPHILS 2.6 % (0-8.0); EOSINOPHIL ABS CT 0; LYMPHOCYTES 10.4 % (15.0-45.0); METAMYELOCYTES 4.3 %; MONOCYTES 0.9 % (0-9.0); MYELOCYTES 0.9 %; OVALOCYTES 1+; PLAT.SUFFICIENCY ADEQUATE; POLYCHROMASIA 1+; SEG.NEUTROPHILS 80.9 % (46.0-76.0); TOX.VACUOLIZATION 1+
[2018-04-12 14:09] LABS: CHLORIDE 101 MEQ/L (99-109); CREATININE 0.9 MG/DL (0.6-1.3); GFR ESTIMATE (CALCULATED) > 59 mL/min/ (58.99-99999); GLUCOSE 130 mg/dL (70-99); MAGNESIUM 2.3 mg/dl (1.3-2.7); PHOSPHORUS 3.5 mg/dL (2.5-4.9); POTASSIUM 5.1 MEQ/L (3.7-5.4); SODIUM 145 MEQ/L (136-147); UREA NITROGEN (BUN) 32 mg/dL (9-23)
[2018-04-12 14:10] LABS: TROP-I INTERPRETATION NEGATIVE; TROPONIN-I 0.07 ng/mL (0.0-0.30)
[2018-04-12 14:19] LABS: ABS NEUTROPHIL COUNT 6.9; ANISOCYTOSIS 1+; ATYPICAL LYMPHOCYTE 0.9 %; BAND NEUTROPHILS 1.8 % (0-8.0); BASOPH.STIPPLING 1+; EOSINOPHIL ABS CT 0; HEMATOCRIT 42.1 % (38.0-50.0); HEMOGLOBIN 12.8 G/DL (12.5-16.6); LYMPHOCYTES 8.9 % (15.0-45.0); MCH 29.2 PG (29.0-34.0); MCHC 30.4 G/DL (30.0-36.0); MCV 96.1 FL (86-99); METAMYELOCYTES 6.3 %; MONOCYTES 9.8 % (0-9.0); MYELOCYTES 1.8 %; NRBC (%) 0.5 /100 WBC (0-0); PLAT.SUFFICIENCY ADEQUATE; PLATELET COUNT 264 K/uL (156-360); POLYCHROMASIA 1+; RBC DIS.WIDTH-CV 17.2 % (11.8-14.6); RBC DIS.WIDTH-SD 60.8 % (39-53); RED BLOOD COUNT 4.38 M/uL (4.00-5.50); SEG.NEUTROPHILS 70.5 % (46.0-76.0); WHITE BLOOD COUNT 9.6 K/uL (4.1-10.2)
[2018-04-12 21:14] LABS: TROP-I INTERPRETATION NEGATIVE; TROPONIN-I 0.11 ng/mL (0.0-0.30)
[2018-04-13] VITALS (25 sets, daily range): BP systolic 111–152; BP diastolic 63–97
[2018-04-13 07:19] LABS: CHLORIDE 100 MEQ/L (99-109); CREATININE 0.9 MG/DL (0.6-1.3); GFR ESTIMATE (CALCULATED) > 59 mL/min/ (58.99-99999); GLUCOSE 119 mg/dL (70-99); POTASSIUM 4.9 MEQ/L (3.7-5.4); SODIUM 144 MEQ/L (136-147); UREA NITROGEN (BUN) 27 mg/dL (9-23)
[2018-04-13 07:20] LABS: TROP-I INTERPRETATION NEGATIVE; TROPONIN-I 0.09 ng/mL (0.0-0.30)
[2018-04-13 07:27] LABS: HEMATOCRIT 38.5 % (38.0-50.0); HEMOGLOBIN 11.5 G/DL (12.5-16.6); MCH 28.6 PG (29.0-34.0); MCHC 29.9 G/DL (30.0-36.0); MCV 95.8 FL (86-99); NRBC (%) 0.3 /100 WBC (0-0); PLATELET COUNT 244 K/uL (156-360); RBC DIS.WIDTH-CV 16.7 % (11.8-14.6); RBC DIS.WIDTH-SD 58.6 % (39-53); RED BLOOD COUNT 4.02 M/uL (4.00-5.50); WHITE BLOOD COUNT 6.5 K/uL (4.1-10.2)
[2018-04-13 09:10] LABS: ABS NEUTROPHIL COUNT 5.5; ANISOCYTOSIS 1+; BASOPH.STIPPLING 1+; EOSINOPHIL ABS CT 0; MACROCYTES 1+; MYELOCYTES 4.6 %; PLAT.SUFFICIENCY ADEQUATE; POIKILOCYTOSIS 1+; POLYCHROMASIA 1+; SEG.NEUTROPHILS 84.4 % (46.0-76.0)
[2018-04-14] VITALS (22 sets, daily range): BP systolic 104–142; BP diastolic 60–89
[2018-04-14 06:05] LABS: HEMATOCRIT 36.3 % (38.0-50.0); HEMOGLOBIN 10.8 G/DL (12.5-16.6); MCH 28.5 PG (29.0-34.0); MCHC 29.8 G/DL (30.0-36.0); MCV 95.8 FL (86-99); PLATELET COUNT 216 K/uL (156-360); RBC DIS.WIDTH-CV 16.6 % (11.8-14.6); RBC DIS.WIDTH-SD 58.5 % (39-53); RED BLOOD COUNT 3.79 M/uL (4.00-5.50); WHITE BLOOD COUNT 4.4 K/uL (4.1-10.2)
[2018-04-14 06:41] LABS: CHLORIDE 100 MEQ/L (99-109); GFR ESTIMATE (CALCULATED) > 59 mL/min/ (58.99-99999); GLUCOSE 147 mg/dL (70-99); MAGNESIUM 2.2 mg/dl (1.3-2.7); POTASSIUM 4.6 MEQ/L (3.7-5.4); SODIUM 146 MEQ/L (136-147); UREA NITROGEN (BUN) 27 mg/dL (9-23)
[2018-04-14 07:10] LABS: DIGOXIN 1.2 ng/mL (0.8-2.0)
[2018-04-15] VITALS (23 sets, daily range): BP systolic 11–146; BP diastolic 56–102
[2018-04-15 14:48] LABS: HEMATOCRIT 37.1 % (38.0-50.0); MCH 29.1 PG (29.0-34.0); MCHC 29.6 G/DL (30.0-36.0); MCV 98.1 FL (86-99); PLATELET COUNT 220 K/uL (156-360); RBC DIS.WIDTH-CV 16.6 % (11.8-14.6); RBC DIS.WIDTH-SD 59.2 % (39-53); RED BLOOD COUNT 3.78 M/uL (4.00-5.50); WHITE BLOOD COUNT 6.5 K/uL (4.1-10.2)
[2018-04-15 15:28] LABS: ABS NEUTROPHIL COUNT 5.3; BAND NEUTROPHILS 7.8 % (0-8.0); BASOPH.STIPPLING 1+; EOSINOPHIL ABS CT 0; HYPOCHROMASIA 1+; LYMPHOCYTES 6.1 % (15.0-45.0); METAMYELOCYTES 1.7 %; MONOCYTES 5.2 % (0-9.0); MYELOCYTES 4.4 %; OTHER 0.9; PLAT.SUFFICIENCY ADEQUATE; SEG.NEUTROPHILS 73.9 % (46.0-76.0)
[2018-04-15 15:33] LABS: ALBUMIN 3.5 G/DL (3.2-4.8); ALKALINE PHOSPHATASE 56 IU/L (3-129); ALT (GPT) 137 IU/L (3-49); AST (GOT) 30 IU/L (2-34); CHLORIDE 101 MEQ/L (99-109); CREATININE 1.2 MG/DL (0.6-1.3); GFR ESTIMATE (CALCULATED) > 59 mL/min/ (58.99-99999); GLUCOSE 167 mg/dL (70-99); HIGH-SENS C-REACTIVE PROTEIN 0.19 MG/DL (0.02-0.20); MAGNESIUM 2.2 mg/dl (1.3-2.7); PHOSPHORUS 2.4 mg/dL (2.5-4.9); POTASSIUM 4.3 MEQ/L (3.7-5.4); SODIUM 144 MEQ/L (136-147); TOTAL BILIRUBIN 0.4 MG/DL (0.0-1.0); TOTAL PROTEIN 5.7 G/DL (6.4-8.3); UREA NITROGEN (BUN) 28 mg/dL (9-23)
[2018-04-16] VITALS (22 sets, daily range): BP systolic 100–138; BP diastolic 58–85
[2018-04-16 05:24] LABS: HEMOGLOBIN 11.2 G/DL (12.5-16.6); MCH 28.8 PG (29.0-34.0); MCHC 29.5 G/DL (30.0-36.0); MCV 97.7 FL (86-99); PLATELET COUNT 192 K/uL (156-360); RBC DIS.WIDTH-CV 16.8 % (11.8-14.6); RBC DIS.WIDTH-SD 58.9 % (39-53); RED BLOOD COUNT 3.89 M/uL (4.00-5.50); WHITE BLOOD COUNT 5.5 K/uL (4.1-10.2)
[2018-04-16 05:58] LABS: CHLORIDE 98 MEQ/L (99-109); CREATININE 1.1 MG/DL (0.6-1.3); GFR ESTIMATE (CALCULATED) > 59 mL/min/ (58.99-99999); GLUCOSE 161 mg/dL (70-99); MAGNESIUM 2.3 mg/dl (1.3-2.7); POTASSIUM 4.6 MEQ/L (3.7-5.4); SODIUM 145 MEQ/L (136-147); UREA NITROGEN (BUN) 32 mg/dL (9-23)
[2018-04-16 06:11] LABS: CARBON DIOXIDE (BICARBONATE) > 40.0 MEQ/L (20-31); PHOSPHORUS 3.7 mg/dL (2.5-4.9)
[2018-04-17] VITALS (19 sets, daily range): BP systolic 92–131; BP diastolic 51–95
[2018-04-17 06:12] LABS: HEMATOCRIT 40.3 % (38.0-50.0); HEMOGLOBIN 11.7 G/DL (12.5-16.6); MCH 28.5 PG (29.0-34.0); MCV 98.3 FL (86-99); NRBC (%) 0.3 /100 WBC (0-0); PLATELET COUNT 189 K/uL (156-360); RBC DIS.WIDTH-CV 16.8 % (11.8-14.6); RBC DIS.WIDTH-SD 60.5 % (39-53); WHITE BLOOD COUNT 7.2 K/uL (4.1-10.2)
[2018-04-17 06:41] LABS: CHLORIDE 101 MEQ/L (99-109); CREATININE 1.2 MG/DL (0.6-1.3); GFR ESTIMATE (CALCULATED) > 59 mL/min/ (58.99-99999); GLUCOSE 142 mg/dL (70-99); MAGNESIUM 2.2 mg/dl (1.3-2.7); PHOSPHORUS 4.1 mg/dL (2.5-4.9); POTASSIUM 4.4 MEQ/L (3.7-5.4); SODIUM 144 MEQ/L (136-147); UREA NITROGEN (BUN) 31 mg/dL (9-23)
[2018-04-18] VITALS (22 sets, daily range): BP systolic 92–152; BP diastolic 50–98
[2018-04-18 05:33] LABS: HEMATOCRIT 42.1 % (38.0-50.0); MCH 29.1 PG (29.0-34.0); MCHC 28.5 G/DL (30.0-36.0); MCV 102.2 FL (86-99); NRBC (%) 0.2 /100 WBC (0-0); PLATELET COUNT 188 K/uL (156-360); RED BLOOD COUNT 4.12 M/uL (4.00-5.50); WHITE BLOOD COUNT 15.6 K/uL (4.1-10.2)
[2018-04-18 05:59] LABS: CHLORIDE 101 MEQ/L (99-109); CREATININE 1.4 MG/DL (0.6-1.3); GFR ESTIMATE (CALCULATED) 53 mL/min/ (58.99-99999); GLUCOSE 171 mg/dL (70-99); MAGNESIUM 2.4 mg/dl (1.3-2.7); PHOSPHORUS 4.8 mg/dL (2.5-4.9); POTASSIUM 4.7 MEQ/L (3.7-5.4); SODIUM 143 MEQ/L (136-147); UREA NITROGEN (BUN) 37 mg/dL (9-23)
[2018-04-18 13:52] LABS: DEVICE N/V; FI02 40 %; MODE N/V SPONT; PCO2 101 mm Hg (35-45); PEEP 8 CM/H20; PO2 53 mm Hg (80-100); PRES. SUPPORT 12 CM/H2O; SITE RR; TOTAL RESP RATE 14 resp/min; pH 7.17 (7.35-7.45)
[2018-04-18 13:53] LABS: BICARBONATE 36.8 mEq/L (22-26); CARBOXY HGB 2.1 % (0-5); COMMENTS - BLOOD GASES A+C+
[2018-04-18 15:23] LABS: BASE EXCESS 4.8 mEq/L (-3 to +3); BICARBONATE 34.7 mEq/L (22-26); CARBOXY HGB 1.9 % (0-5); DEVICE 840; FI02 40 %; MECHANICAL RATE 20 resp/min; METHEMOGLOBIN 1.1 % (0-1.5); MODE AC; PCO2 81 mm Hg (35-45); PO2 59 mm Hg (80-100); SITE LR; TIDAL VOLUME 500 ML; TOTAL RESP RATE 20 resp/min; pH 7.24 (7.35-7.45)
[2018-04-18 15:24] LABS: COMMENTS - BLOOD GASES A+C+; PEEP 5 CM/H20
[2018-04-19] VITALS (19 sets, daily range): BP systolic 106–166; BP diastolic 51–82
[2018-04-19 00:52] LABS: COMMENTS - BLOOD GASES A+C+; DEVICE VENT; FI02 40 %; MODE ACVC; SITE RR
[2018-04-19 00:53] LABS: MECHANICAL RATE 25 resp/min; PCO2 35 mm Hg (35-45); PEEP 5 CM/H20; PO2 52 mm Hg (80-100); TIDAL VOLUME 500 ML; TOTAL RESP RATE 25 resp/min; pH 7.59 (7.35-7.45)
[2018-04-19 00:54] LABS: BASE EXCESS 11.2 mEq/L (-3 to +3); BICARBONATE 33.6 mEq/L (22-26); CARBOXY HGB 1.4 % (0-5); METHEMOGLOBIN 1.3 % (0-1.5); O2 SATURATION (CALCULATED) 95.5 % (95-99)
[2018-04-19 02:01] LABS: COMMENTS - BLOOD GASES A+C+; DEVICE VENT; FI02 40 %; MECHANICAL RATE 18 resp/min; MODE ACVC; PCO2 39 mm Hg (35-45); PEEP 10 CM/H20; PO2 61 mm Hg (80-100); SITE LR; TIDAL VOLUME 500 ML; TOTAL RESP RATE 18 resp/min; pH 7.53 (7.35-7.45)
[2018-04-19 02:02] LABS: BASE EXCESS 9.2 mEq/L (-3 to +3); BICARBONATE 32.6 mEq/L (22-26); CARBOXY HGB 1.5 % (0-5); METHEMOGLOBIN 1.2 % (0-1.5); O2 SATURATION (CALCULATED) 96.6 % (95-99)
[2018-04-19 05:33] LABS: BASOPHIL (%) 0.1 % (0-1); EOSINOPHIL (%) 0 % (0-5); HEMATOCRIT 34.2 % (38.0-50.0); HEMOGLOBIN 10.3 G/DL (12.5-16.6); IMMATURE GRANULOCYTE (%) 1.2 % (0.0-0.7); LYMPHOCYTE (%) 2.3 % (15-42); LYMPHOCYTE COUNT 0.3 K/uL (1.0-2.8); MCHC 30.1 G/DL (30.0-36.0); MONOCYTE (%) 2.8 % (3-12); MONOCYTE COUNT 0.3 K/uL (0-0.8); NEUTROPHIL (%) 93.6 % (45-76); NEUTROPHIL COUNT 10.6 K/uL (1.8-6.4); PLATELET COUNT 133 K/uL (156-360); RBC DIS.WIDTH-CV 16.8 % (11.8-14.6); RBC DIS.WIDTH-SD 59.9 % (39-53); RED BLOOD COUNT 3.55 M/uL (4.00-5.50); WHITE BLOOD COUNT 11.3 K/uL (4.1-10.2)
[2018-04-19 05:34] LABS: MCV 96.3 FL (86-99)
[2018-04-19 05:37] LABS: COMMENTS - BLOOD GASES A+C+; DEVICE VENT; FI02 40 %; MECHANICAL RATE 18 resp/min; MODE ACVC; PEEP 10 CM/H20; SITE RR; TIDAL VOLUME 500 ML; TOTAL RESP RATE 18 resp/min
[2018-04-19 05:38] LABS: BASE EXCESS 9.1 mEq/L (-3 to +3); BICARBONATE 33.9 mEq/L (22-26); CARBOXY HGB 1.2 % (0-5); METHEMOGLOBIN 1.4 % (0-1.5); O2 SATURATION (CALCULATED) 96.1 % (95-99); PCO2 40 mm Hg (35-45); PO2 62 mm Hg (80-100); pH 7.52 (7.35-7.45)
[2018-04-19 06:00] LABS: CHLORIDE 105 MEQ/L (99-109); CREATININE 1.3 MG/DL (0.6-1.3); GFR ESTIMATE (CALCULATED) 57 mL/min/ (58.99-99999); GLUCOSE 116 mg/dL (70-99); MAGNESIUM 2.3 mg/dl (1.3-2.7); PHOSPHORUS 1.4 mg/dL (2.5-4.9); POTASSIUM 4.2 MEQ/L (3.7-5.4); SODIUM 143 MEQ/L (136-147); UREA NITROGEN (BUN) 51 mg/dL (9-23)
[2018-04-19 07:24] LABS: BASE EXCESS 9.1 mEq/L (-3 to +3); BICARBONATE 34.1 mEq/L (22-26); CARBOXY HGB 1.5 % (0-5); COMMENTS - BLOOD GASES A+C+; DEVICE 980; FI02 40 %; MECHANICAL RATE 14 resp/min; METHEMOGLOBIN 0.9 % (0-1.5); MODE AC; PCO2 48 mm Hg (35-45); PEEP 10 CM/H20; PO2 90 mm Hg (80-100); SITE LR; TIDAL VOLUME 500 ML; TOTAL RESP RATE 14 resp/min; pH 7.46 (7.35-7.45)
[2018-04-20] VITALS (19 sets, daily range): BP systolic 114–168; BP diastolic 49–95
[2018-04-20 05:43] LABS: HEMATOCRIT 32.7 % (38.0-50.0); MCH 29.1 PG (29.0-34.0); MCHC 30.6 G/DL (30.0-36.0); MCV 95.1 FL (86-99); PLATELET COUNT 106 K/uL (156-360); RBC DIS.WIDTH-CV 17.9 % (11.8-14.6); RBC DIS.WIDTH-SD 61.3 % (39-53); RED BLOOD COUNT 3.44 M/uL (4.00-5.50); WHITE BLOOD COUNT 7.9 K/uL (4.1-10.2)
[2018-04-20 06:20] LABS: CHLORIDE 105 MEQ/L (99-109); CREATININE 1.1 MG/DL (0.6-1.3); GFR ESTIMATE (CALCULATED) > 59 mL/min/ (58.99-99999); GLUCOSE 162 mg/dL (70-99); MAGNESIUM 2.4 mg/dl (1.3-2.7); POTASSIUM 4.2 MEQ/L (3.7-5.4); SODIUM 142 MEQ/L (136-147); UREA NITROGEN (BUN) 49 mg/dL (9-23)
[2018-04-20 06:26] LABS: PHOSPHORUS 2.3 mg/dL (2.5-4.9)
[2018-04-21] VITALS (24 sets, daily range): BP systolic 121–164; BP diastolic 48–78
[2018-04-21 05:21] LABS: HEMATOCRIT 34.5 % (38.0-50.0); HEMOGLOBIN 10.5 G/DL (12.5-16.6); MCH 28.5 PG (29.0-34.0); MCHC 30.4 G/DL (30.0-36.0); MCV 93.8 FL (86-99); PLATELET COUNT 97 K/uL (156-360); RBC DIS.WIDTH-CV 18.1 % (11.8-14.6); RBC DIS.WIDTH-SD 62.1 % (39-53); RED BLOOD COUNT 3.68 M/uL (4.00-5.50); WHITE BLOOD COUNT 8.3 K/uL (4.1-10.2)
[2018-04-21 06:11] LABS: CHLORIDE 106 MEQ/L (99-109); CREATININE 0.9 MG/DL (0.6-1.3); GFR ESTIMATE (CALCULATED) > 59 mL/min/ (58.99-99999); GLUCOSE 153 mg/dL (70-99); MAGNESIUM 2.4 mg/dl (1.3-2.7); PHOSPHORUS 2.8 mg/dL (2.5-4.9); POTASSIUM 4.9 MEQ/L (3.7-5.4); SODIUM 145 MEQ/L (136-147); UREA NITROGEN (BUN) 40 mg/dL (9-23)
[2018-04-21 12:15] LABS: COMMENTS - BLOOD GASES A+C+; DEVICE 980; FI02 40 %; MODE SPONT (TC); SITE LR
[2018-04-21 12:16] LABS: CARBOXY HGB 1.7 % (0-5); METHEMOGLOBIN 0.9 % (0-1.5); PCO2 60 mm Hg (35-45); PEEP 5 CM/H20; PO2 96 mm Hg (80-100); TOTAL RESP RATE 20 resp/min; pH 7.37 (7.35-7.45)
[2018-04-21 12:17] LABS: BASE EXCESS 7.7 mEq/L (-3 to +3); BICARBONATE 34.7 mEq/L (22-26)
[2018-04-21 20:12] LABS: CHLORIDE 107 mEq/L (99-109); SODIUM 146 mEq/L (136-147)
[2018-04-21 20:18] LABS: CREATININE 0.8 mg/dL (0.6-1.3); GFR ESTIMATE (CALCULATED) > 59 mL/min/ (58.99-99999)
[2018-04-21 20:19] LABS: GLUCOSE 103 mg/dL (70-99); UREA NITROGEN (BUN) 32 mg/dL (9-23)
[2018-04-22] VITALS (16 sets, daily range): BP systolic 128–170; BP diastolic 53–99
[2018-04-22 05:49] LABS: HEMATOCRIT 36.1 % (38.0-50.0); HEMOGLOBIN 11.2 G/DL (12.5-16.6); MCH 29.5 PG (29.0-34.0); PLATELET COUNT 94 K/uL (156-360); RBC DIS.WIDTH-CV 18.3 % (11.8-14.6); RBC DIS.WIDTH-SD 63.4 % (39-53); WHITE BLOOD COUNT 5.4 K/uL (4.1-10.2)
[2018-04-22 06:16] LABS: CHLORIDE 105 MEQ/L (99-109); CREATININE 0.8 MG/DL (0.6-1.3); GFR ESTIMATE (CALCULATED) > 59 mL/min/ (58.99-99999); GLUCOSE 137 mg/dL (70-99); MAGNESIUM 2.3 mg/dl (1.3-2.7); PHOSPHORUS 3.2 mg/dL (2.5-4.9); POTASSIUM 4.9 MEQ/L (3.7-5.4); SODIUM 145 MEQ/L (136-147); UREA NITROGEN (BUN) 29 mg/dL (9-23)
[2018-04-23] VITALS (18 sets, daily range): BP systolic 129–178; BP diastolic 62–87
[2018-04-23 09:20] LABS: COMMENTS - BLOOD GASES NAC+; O2 FLOW 2 L/MIN; SITE LR
[2018-04-23 09:21] LABS: DEVICE CANNULA; METHEMOGLOBIN 1.3 % (0-1.5); PCO2 67 mm Hg (35-45); PO2 59 mm Hg (80-100); TOTAL RESP RATE 21 resp/min; pH 7.37 (7.35-7.45)
[2018-04-23 09:22] LABS: BASE EXCESS 10.8 mEq/L (-3 to +3); BICARBONATE 38.7 mEq/L (22-26)
[2018-04-23 11:31] LABS: COMMENTS - BLOOD GASES NAC+; O2 FLOW 7 L/MIN; SITE LR
[2018-04-23 11:32] LABS: PCO2 67 mm Hg (35-45); PO2 70 mm Hg (80-100); TOTAL RESP RATE 22 resp/min; pH 7.36 (7.35-7.45)
[2018-04-23 11:33] LABS: BASE EXCESS 9.8 mEq/L (-3 to +3); BICARBONATE 37.9 mEq/L (22-26); CARBOXY HGB 2.2 % (0-5); METHEMOGLOBIN 0.9 % (0-1.5)
[2018-04-23 11:34] LABS: DEVICE BIPAP 15/8
[2018-04-24] VITALS (25 sets, daily range): BP systolic 125–182; BP diastolic 64–99
[2018-04-24 09:06] LABS: BASOPHIL (%) 0.2 % (0-1); EOSINOPHIL (%) 0 % (0-5); HEMATOCRIT 43.1 % (38.0-50.0); HEMOGLOBIN 13.2 G/DL (12.5-16.6); LYMPHOCYTE (%) 6.3 % (15-42); LYMPHOCYTE COUNT 0.3 K/uL (1.0-2.8); MCH 29.5 PG (29.0-34.0); MCHC 30.6 G/DL (30.0-36.0); MCV 96.2 FL (86-99); MONOCYTE (%) 5.1 % (3-12); MONOCYTE COUNT 0.3 K/uL (0-0.8); NEUTROPHIL (%) 87.4 % (45-76); NEUTROPHIL COUNT 4.3 K/uL (1.8-6.4); PLATELET COUNT 104 K/uL (156-360); RBC DIS.WIDTH-CV 17.7 % (11.8-14.6); RBC DIS.WIDTH-SD 62.2 % (39-53); RED BLOOD COUNT 4.48 M/uL (4.00-5.50)
[2018-04-24 09:28] LABS: CHLORIDE 100 MEQ/L (99-109); CREATININE 0.9 MG/DL (0.6-1.3); GFR ESTIMATE (CALCULATED) > 59 mL/min/ (58.99-99999); GLUCOSE 112 mg/dL (70-99); MAGNESIUM 2.3 mg/dl (1.3-2.7); PHOSPHORUS 2.8 mg/dL (2.5-4.9); POTASSIUM 5.3 MEQ/L (3.7-5.4); SODIUM 147 MEQ/L (136-147); UREA NITROGEN (BUN) 27 mg/dL (9-23)
[2018-04-24 09:34] LABS: CARBON DIOXIDE (BICARBONATE) > 40.0 MEQ/L (20-31)
[2018-04-24 11:10] LABS: BASE EXCESS 9.7 mEq/L (-3 to +3); BICARBONATE 36.3 mEq/L (22-26); CARBOXY HGB 2.2 % (0-5); COMMENTS - BLOOD GASES A+C+; DEVICE NC; METHEMOGLOBIN 1.2 % (0-1.5); O2 FLOW 1 L/MIN; O2 SATURATION (CALCULATED) 90.8 % (95-99); PCO2 56 mm Hg (35-45); PO2 62 mm Hg (80-100); SITE LR; pH 7.42 (7.35-7.45)
[2018-04-25] VITALS (13 sets, daily range): BP systolic 110–144; BP diastolic 59–75
[2018-04-25 05:48] LABS: BASOPHIL (%) 0 % (0-1); EOSINOPHIL (%) 0 % (0-5); HEMATOCRIT 40.9 % (38.0-50.0); HEMOGLOBIN 12.4 G/DL (12.5-16.6); IMMATURE GRANULOCYTE (%) 1.1 % (0.0-0.7); LYMPHOCYTE (%) 5.3 % (15-42); LYMPHOCYTE COUNT 0.3 K/uL (1.0-2.8); MCH 28.9 PG (29.0-34.0); MCHC 30.3 G/DL (30.0-36.0); MCV 95.3 FL (86-99); MONOCYTE (%) 3.8 % (3-12); MONOCYTE COUNT 0.2 K/uL (0-0.8); NEUTROPHIL (%) 89.8 % (45-76); NEUTROPHIL COUNT 4.2 K/uL (1.8-6.4); PLATELET COUNT 100 K/uL (156-360); RBC DIS.WIDTH-CV 17.6 % (11.8-14.6); RBC DIS.WIDTH-SD 61.6 % (39-53); RED BLOOD COUNT 4.29 M/uL (4.00-5.50); WHITE BLOOD COUNT 4.7 K/uL (4.1-10.2)
[2018-04-25 06:18] LABS: CHLORIDE 103 MEQ/L (99-109); GFR ESTIMATE (CALCULATED) > 59 mL/min/ (58.99-99999); GLUCOSE 148 mg/dL (70-99); POTASSIUM 5.2 MEQ/L (3.7-5.4); SODIUM 144 MEQ/L (136-147); UREA NITROGEN (BUN) 32 mg/dL (9-23)
[2018-04-25 08:54] LABS: COMMENTS - BLOOD GASES A+C+; DEVICE NC; O2 FLOW 2 L/MIN; PCO2 66 mm Hg (35-45); PO2 67 mm Hg (80-100); SITE LR; TOTAL RESP RATE 16 resp/min; pH 7.38 (7.35-7.45)
[2018-04-25 08:55] LABS: BASE EXCESS 11.1 mEq/L (-3 to +3); CARBOXY HGB 2.6 % (0-5); METHEMOGLOBIN 0.9 % (0-1.5)
[2018-04-26] VITALS (7 sets, daily range): BP systolic 134–155; BP diastolic 44–88
[2018-04-27 03:30] VITALS: BP 137/67
[2018-04-27 08:36] VITALS: BP 123/62
[2018-04-27 12:23] VITALS: BP 137/83
[2018-04-27] MEDS ORDERED: CORDARONE200 MG PO (13:48)
[2018-04-27] MEDS ORDERED: CARDIZEM60 MG PO (13:48)
[2018-04-27] MEDS ORDERED: FUROSEMIDE20 MG PO (14:07)
[2018-04-27] MEDS ORDERED: CEFDINIR300 MG PO (14:07)
[2018-04-27] MEDS ORDERED: ELIQUIS5 MG PO (14:10)
[2018-04-27] MEDS ORDERED: CLONAZEPAM0.5 MG PO (14:10)
== END 2018-04-27 17:49 | DRG 207 ==
LOC: EME 18:55 → 4EAST 23:20 → 4WEST 23:20 → EDOF 23:20 → ENRESERV 23:28 → 5SOUTH 04-05 00:49 → ENRESERV 04-05 05:01 → 5SOUTH 04-05 05:03 → 4WEST 04-05 05:27 → ENRESERV 04-22 15:27 → CANRESERV 04-22 15:27 → 4WEST 04-23 10:33 → ENRESERV 04-25 09:54 → 4EAST 04-25 14:14
PROVIDERS: Emergency Medicine; Hospitalist; Internal Medicine; Internal Medicine Critical Care Medicine; Obstetrics & Gynecology; Specialist; Surgery
DX: J96.21 Acute and chronic respiratory failure with hypoxia (principal); J96.22 Acute and chronic respiratory failure with hypercapnia; J90 Pleural effusion, not elsewhere classified; L03.115 Cellulitis of right lower limb; N17.9 Acute kidney failure, unspecified; E87.5 Hyperkalemia; E87.2 Acidosis; J44.1 Chronic obstructive pulmonary disease with (acute) exacerbation; J44.0 Chronic obstructive pulmonary disease with (acute) lower respiratory infection; J18.9 Pneumonia, unspecified organism; J15.0 Pneumonia due to Klebsiella pneumoniae; J98.11 Atelectasis; J98.09 Other diseases of bronchus, not elsewhere classified; J39.8 Other specified diseases of upper respiratory tract; S81.801A Unspecified open wound, right lower leg, initial encounter; W20.8XXA Other cause of strike by thrown, projected or falling object, initial encounter; Y93.89 Activity, other specified; Y92.230 Patient room in hospital as the place of occurrence of the external cause; I12.9 Hypertensive chronic kidney disease with stage 1 through stage 4 chronic kidney disease, or unspecified chronic kidney disease; N18.9 Chronic kidney disease, unspecified; F41.9 Anxiety disorder, unspecified; F32.9 Major depressive disorder, single episode, unspecified; I73.9 Peripheral vascular disease, unspecified; I25.10 Atherosclerotic heart disease of native coronary artery without angina pectoris; N40.0 Benign prostatic hyperplasia without lower urinary tract symptoms; G47.00 Insomnia, unspecified; I48.2 Chronic atrial fibrillation; I89.0 Lymphedema, not elsewhere classified; I27.20 Pulmonary hypertension, unspecified; I35.2 Nonrheumatic aortic (valve) stenosis with insufficiency; E78.5 Hyperlipidemia, unspecified; J98.6 Disorders of diaphragm; I25.5 Ischemic cardiomyopathy; G47.33 Obstructive sleep apnea (adult) (pediatric); I49.3 Ventricular premature depolarization; E66.9 Obesity, unspecified; Z86.14 Personal history of Methicillin resistant Staphylococcus aureus infection; Z88.2 Allergy status to sulfonamides; Z87.891 Personal history of nicotine dependence; Z99.81 Dependence on supplemental oxygen; Z90.5 Acquired absence of kidney; Z68.31 Body mass index [BMI] 31.0-31.9, adult; Z89.512 Acquired absence of left leg below knee
CPT/HCPCS: 36600; 71045; 71250; 73700; 74176; 76604; 80048; 80048 91; 80053; 80162; 80202; 81003; 82330; 82803; 82948; 83605; 83735; 83880; 84100; 84145 90; 84484; 85025; 85025 91; 85027; 85610; 85730; 86141; 87040; 87070; 87077; 87081; 87116; 87186; 87205; 87206; 87278; 87641; 88108; 92610 GN; 93005; 93971; 94002; 94003; 94640; 94640 76; 94660; 94760; 94799; 97530 GO; 97530 GP; 99202; 99281; 99285; A6021; A6212; C1753; J0692; J0696; J1120; J1160; J1644; J1940; J2543; J2704; J2765; J2920; J2930; J3010; J3370; J3475; J3480; J7030; J7042; J7050; J7644; P9047; S0028

== ENCOUNTER 2018-04-30 09:09 | Inpatient (IN) | payer OTHER, MEDICARE ==
[~2018-04-30] VITALS: Ht 195.6 cm; Wt 111.1 kg
[~2018-04-30 09:09] MED LIST changes: +CARDIZEM60 MG PO; +CEFDINIR300 MG PO; +CORDARONE200 MG PO; +ELIQUIS5 MG PO; +TAMSULOSIN HCL0.4 MG PO; +TYLENOL EXTRA500 MG PO; +VERAPAMIL HCL120 M2 PO; +ZESTRIL5 MG PO
[2018-04-30 09:48] LABS: HEMATOCRIT 43.9 % (38.0-50.0); HEMOGLOBIN 13.5 G/DL (12.5-16.6); MCH 30.2 PG (29.0-34.0); MCHC 30.8 G/DL (30.0-36.0); MCV 98.2 FL (86-99); PLATELET COUNT 74 K/uL (156-360); RBC DIS.WIDTH-CV 17.6 % (11.8-14.6); RED BLOOD COUNT 4.47 M/uL (4.00-5.50); WHITE BLOOD COUNT 7.7 K/uL (4.1-10.2)
[2018-04-30 09:59] LABS: CHLORIDE 100 mEq/L (99-109); SODIUM 144 mEq/L (136-147)
[2018-04-30 10:01] LABS: GLUCOSE 144 mg/dL (70-99)
[2018-04-30 10:05] LABS: UREA NITROGEN (BUN) 82 mg/dL (9-23)
[2018-04-30 10:08] LABS: CREATININE 4.1 mg/dL (0.6-1.3); GFR ESTIMATE (CALCULATED) 15 mL/min/ (58.99-99999); POTASSIUM 6.7 mEq/L (3.7-5.4)
[2018-04-30 11:19] LABS: INTER. NORMALIZED RATIO 1.4
[2018-04-30 11:22] LABS: PTT 26.1 SEC (25-37)
[2018-04-30 11:31] LABS: TROP-I INTERPRETATION POSITIVE
[2018-04-30 11:32] LABS: TROPONIN-I 1.33 ng/mL (0.0-0.30)
[2018-04-30 11:53] VITALS: BP 00/00
== END 2018-04-30 13:17 | DRG 189 ==
LOC: EME → EDBD 09:09 → EME 09:09 → EDOF 11:52
PROVIDERS: Emergency Medicine
DX: J96.90 Respiratory failure, unspecified, unspecified whether with hypoxia or hypercapnia (principal); E87.5 Hyperkalemia; I46.9 Cardiac arrest, cause unspecified; I48.92 Unspecified atrial flutter; I47.2 Ventricular tachycardia; I50.9 Heart failure, unspecified; J44.9 Chronic obstructive pulmonary disease, unspecified; N18.9 Chronic kidney disease, unspecified; F41.9 Anxiety disorder, unspecified; F32.9 Major depressive disorder, single episode, unspecified; Z87.891 Personal history of nicotine dependence; Z86.14 Personal history of Methicillin resistant Staphylococcus aureus infection; Z89.612 Acquired absence of left leg above knee; Z90.49 Acquired absence of other specified parts of digestive tract; Z88.2 Allergy status to sulfonamides; Z88.1 Allergy status to other antibiotic agents
CPT/HCPCS: 71045; 80048; 81003; 82310; 83605; 83690; 83880; 84484; 85027; 85610; 85730; 92950; 93005; 94002; 99281; 99285; J0171; J0282; J2270; J7030; J7050